=== PATIENT | female | born 1980 | race Hispanic/Latino ===

== ENCOUNTER 2020-09-03 07:57 | Outpatient (CLI) | payer BC, OTHER ==
[2020-09-03 14:35] LABS: Albumin 4.6 g/dL (3.5-5.0)
[2020-09-03 14:36] LABS: Chloride 105 mmol/L (98-107); Potassium 3.9 mmol/L (3.5-5.1); Sodium 139 mmol/L (136-145)
[2020-09-03 14:37] LABS: Calcium 9.2 mg/dL (7.8-10.44)
[2020-09-03 14:38] LABS: Globulin 2.8 g/dL (2.4-3.5); Glucose 104 mg/dL (70-105); Protein, Total 7.4 g/dL (6.0-8.3)
[2020-09-03 14:39] LABS: Anion Gap 15 mmol/L (10-20); Bilirubin, Total 0.9 mg/dL (0.2-1.2); Carbon Dioxide 23 mmol/L (22-29)
[2020-09-03 14:40] LABS: #Basophils 0.1 thou/uL (0.0-0.2); #Eosinphils 0.1 thou/uL (0.0-0.7); #Lymphocytes 2.7 thou/uL (1.20-3.40); #Monocytes 0.6 thou/uL (0.11-0.59); #Neutrophils 7.5 thou/uL (1.40-6.50); %Basophils 0.5 % (0.0-1.0); %Eosinophils 0.7 % (0.0-10.0); %Lymphocytes 24.9 % (21.0-51.0); %Monocytes 5.2 % (0.0-10.0); %Neutrophils 68.7 % (42.0-75.0); Anisocytosis SLIGHT = 6-15 cells (100X) (0-5/hpf); Hemoglobin 11.5 g/dL (12.0-16.0); Hypochromia SLIGHT = 6-15 cells (100X) (0-5/hpf); MDiff Complete? YES; Mean Corpuscular HGB CONC 32.4 g/dL (32.0-36.0); Mean Corpuscular Hemoglobin 20.2 pg (27.0-31.0); Mean Corpuscular Volume 62.5 fL (78.0-98.0); Mean Platelet Volume 6.4 fL (7.4-10.4); Microcytosis MODERATE=15-30 cells (100X) (0-5/hpf); Ovalocytes SLIGHT = 2-5 cells (100X) (0-1/hpf); Platelet Count 357 thou/uL (130-400); Platelet Morphology Comment Appears Adequate; Polychromasia SLIGHT = 2-3 cells (100X) (0-2/hpf); RBC Distribution Width 16.5 % (11.5-14.5); Red Blood Cell (RBC) Count 5.67 mill/uL (4.20-5.40); Reflex for Review?? NO; Schistocytes SLIGHT = 2-5 cells (100X) (0-1/hpf); Target Cells MODERATE= 6-15 cells (100X) (0-1/hpf); Tear Drops SLIGHT = 2-5 cells (100X) (0-1/hpf); White Blood Cell (WBC) Count 10.9 thou/uL (4.8-10.8)
[2020-09-03 14:41] LABS: Alkaline Phosphatase 78 U/L (40-110); Calc. Creatinine Clearance 0 mL/min (70-130); Estimated GFR-MDRD 88
[2020-09-03 14:42] LABS: BUN (Urea Nitrogen) 12 mg/dL (7.0-18.7)
[2020-09-03 14:43] LABS: ALT (SGPT) 14 U/L (8-55); AST (SGOT) 19 U/L (5-34)
[2020-09-04 10:30] LABS: SARS-CoV-2 MS2 Positive; SARS-CoV-2 N Gene Negative; SARS-CoV-2 S Gene Negative; SARS-CoV-2 by NAA Not Detected (NotDetected); SARS-CoV-2 orf1ab Negative
== END 2020-09-03 07:58 | disposition home or self-care (01) ==
LOC: LABBT 07:57
PROVIDERS: ATTEND Specialist
DX: Z01.812 Encounter for preprocedural laboratory examination (principal); Z20.828 Contact with and (suspected) exposure to other viral communicable diseases; K80.10 Calculus of gallbladder with chronic cholecystitis without obstruction
CPT/HCPCS: 80053; 85025; 87635; U0003

== ENCOUNTER 2020-09-06 06:57 | Day surgery (SDC) | payer BC ==
[2020-09-05 10:00] VITALS: BMI 36.3
--- NOTE | 2020-09-05 10:33 | HP ---
HISTORY OF PRESENT ILLNESS: Bernarda Antoine is 39-year-old female, whom I saw on 08/01/2020, for both reflux and right upper quadrant pain. Because of some of her symptoms were epigastric in nature and postprandial, obtained a gallbladder ultrasound. She has an appointment to see Dr. Harris on August 21. Ultrasound reviewed today and revealed multiple echogenic foci within the gallbladder, may represent adenomatous or cholesterol polyps. Recommend laparoscopic video cholecystectomy due to her symptoms. Awaiting further evaluation with Dr. Harris. 36 BMI, 205 pounds, 63 inches. Recommended weight loss, postural changes, PPIs to control her reflux. We would recommend weight reduction. FAMILY HISTORY: Noncontributory. Mother does have some heart disease. Grandparents have diabetes. PAST SURGICAL HISTORY: Tonsillectomy. PAST MEDICAL HISTORY: lumbar disk disease, right knee arthritis, insomnia. MEDICATIONS: Omeprazole. SOCIAL HISTORY: Tobacco cessation in June 2019. Alcohol socially. Drug use, none. The patient works at [employer]. The patient has same-sex partner. ALLERGIES: NONE. PHYSICAL EXAMINATION: VITAL SIGNS: Weight 205 pounds, height 63 inches, 36 BMI. Blood pressure 102/51, pulse 80, temperature 97.3 degrees. HEAD, EARS, EYES, NOSE, AND THROAT: Unremarkable. LUNGS: Clear to auscultation. CARDIAC: Regular rate and rhythm without murmur or gallop. ABDOMEN: Soft, nontender. EXTREMITIES: Unremarkable. ASSESSMENT AND PLAN: 1. Reflux, some dysphagia. Await upper endoscopy evaluation with Dr. Harris. 2. Gallbladder symptoms. Recommend laparoscopic video cholecystectomy. Risks of infection, bleeding, visceral and biliary injury discussed. Questions answered. Await GI evaluation and schedule laparoscopic cholecystectomy in the future. Could coordinate with Dr. Harris. If she needs an EGD, anesthesia. Postpone upper endoscopy until Dr. Harris's evaluation. Job ID: [id number]
--- NOTE | 2020-09-05 10:34 | HP ---
HISTORY OF PRESENT ILLNESS: Bernarda Antoine is a 39-year-old female, who I saw recently 08/15/2020. She had problems with symptomatic gallstones, significant reflux, morbid obesity, BMI of 36. Her insurance does not cover bariatric surgery. She has such severe reflux that we sent her to see Dr. Onesimo Puente. Upper endoscopy revealed a small hiatal hernia. She was continued PPIs. I had a long discussion with her today regarding her multiple problems. As far as surgical control of her reflux, the best operation will be a laparoscopic gastric bypass, however, she has had a relative or a friend who has had that surgery and had some problems, so she is reluctant to undergo that. She thinks that she can lose weight on her own and would like to try that first. At this time we will proceed with laparoscopic cholecystectomy. She understands the risks and benefits of procedure and consents. MEDICATIONS: Prilosec b.i.d. PAST MEDICAL HISTORY: Lumbar disk, arthritis right knee, insomnia. PAST SURGICAL HISTORY: Tonsillectomy. FAMILY HISTORY: Noncontributory. SOCIAL HISTORY: Patient is former smoker, cessation June 2019. Alcohol occasionally. REVIEW OF SYSTEMS: [employer] noncontributory. PHYSICAL EXAMINATION: VITAL SIGNS: 205 pounds, 63 inches, 36.3 BMI, 119/61, 90, degrees. HEAD, EARS EYES, NOSE, AND THROAT: Unremarkable. LUNGS: Clear to auscultation. CARDIAC: Regular rate and rhythm, no murmur or gallop. ABDOMEN: Soft, nontender. No masses. EXTREMITIES: Unremarkable. ASSESSMENT AND PLAN: Symptomatic cholelithiasis. Recommend laparoscopic video cholecystectomy. Risks of infection, bleeding, reoperation were discussed. She consents. We will proceed as an outpatient. Job ID: [id number]
[2020-09-06] MEDS ORDERED: Ketorolac Tromethamine 30 MG/ML VIAL ONE (07:41)
[2020-09-06] MEDS ORDERED: Scopolamine 1.5 mg/72 hour Patch ONE (07:42)
[2020-09-06] MEDS ORDERED: Ondansetron PF 4 MG/2 ML Vial ONE ×2 (07:42→09:46)
[2020-09-06] MEDS ORDERED: Acetaminophen 500 MG TAB ONE (08:06)
[2020-09-06] MEDS ORDERED: Bupivacaine/Epinephrine 0.25% 30 ML VIAL ONE (09:04)
[2020-09-06] MEDS ORDERED: Fentanyl 100 MCG/2 ML VIAL ONE ×3 (09:10→10:14)
[2020-09-06] MEDS ORDERED: Dexamethasone 20 MG/5 ML VIAL ONE (09:46)
[2020-09-06] MEDS ORDERED: PROPOFOL 200 MG/20 ML VIAL ONE (09:46)
[2020-09-06] MEDS ORDERED: Glycopyrrolate 0.2 MG/ML 5 ML SYRINGE ONE (09:46)
[2020-09-06] MEDS ORDERED: Rocuronium Bromide 10 MG/ML (10ML VIAL) ONE (09:46)
[2020-09-06] MEDS ORDERED: Lidocaine 1% PF 5 ML VIAL ONE (09:46)
--- NOTE | 2020-09-06 10:43 | OP ---
DATE OF PROCEDURE: 09/06/2020 PREOPERATIVE DIAGNOSES: Chronic cholecystitis, cholelithiasis. POSTOPERATIVE DIAGNOSES: Chronic cholecystitis, cholelithiasis. PROCEDURE PERFORMED: Laparoscopic video cholecystectomy. ANESTHESIA: General, local 0.5% Marcaine with epinephrine 30 mL. DESCRIPTION OF PROCEDURE: The patient was taken to the operating room where under general anesthesia, abdomen was prepared with ChloraPrep and draped in routine fashion. Local anesthetic infiltrated in skin and subcutaneous tissue about each port sites. A vertical incision made. Pneumoperitoneum to 15 mmHg was obtained with a Veress needle, replaced with a 5 port, video laparoscope inserted. Right subxiphoid incision was made and 11 port placed, right subcostal incision made in midclavicular and anterior axillary line ad 5 port placed. Liver appeared to be normal, gallbladder without inflammation. Fundus was grasped and retracted cephalad. Infundibulum grasped, retracted laterally. Cystic artery and duct dissected free. Critical view obtained. Cystic artery and duct doubly clipped proximally and divided. Gallbladder dissected free from liver bed obtaining good hemostasis prior to division of final peritoneal attachments. Gallbladder and contents removed, submitted to pathology. Good hemostasis ensured. Irrigant and pneumoperitoneum were evacuated. All instruments were removed. All skin incisions were approximated with interrupted subdermal 4-0 Monocryl and Lookingglass glue applied. Job ID: [id number]
== END 2020-09-06 11:45 | disposition home or self-care (01) ==
LOC: SDC 06:57
PROVIDERS: ATTEND Specialist
PROC: 0FT44ZZ Resection of Gallbladder, Percutaneous Endoscopic Approach (ICD-10-PCS; principal; 2020-09-06)
DX: K80.10 Calculus of gallbladder with chronic cholecystitis without obstruction (principal); M17.11 Unilateral primary osteoarthritis, right knee; K21.9 Gastro-esophageal reflux disease without esophagitis; E66.01 Morbid (severe) obesity due to excess calories; Z68.36 Body mass index [BMI] 36.0-36.9, adult; Z79.899 Other long term (current) drug therapy; Z87.891 Personal history of nicotine dependence
CPT/HCPCS: 88304; J0690; J1100; J1885; J2405; J2704; J3010